=== PATIENT | female | born 1970 | race African-American/Black ===

== ENCOUNTER 2022-02-08 07:38 | Emergency (ER) | payer OTHER, SELFPAY ==
[2022-02-08 07:32] VITALS: BP 117/67; PULSE 53; RESP 12; TEMP 37.1; O2SAT 100
[2022-02-08 07:41] VITALS: PULSE 53
--- NOTE | 2022-02-08 07:41 | ECG_ITS ---
Measurements Intervals [employer] Rate: 52 P: 63 IL: 204 QRS: -5 QRSD: 81 T: 13 QT: 432 QTc: 402 Interpretive Statements SINUS BRADYCARDIA NO PREVIOUS ECG AVAILABLE FOR COMPARISON Electronically Signed On 02-08-2022 8:49:13 CDT by Toi Cody M.D.
--- NOTE | 2022-02-08 08:05 | ED.SYNCOPE ---
HPI - Syncope General Chief Complaint: Syncope Stated Complaint: syncope Source: patient Mode of arrival: ambulatory Limitations: no limitations History of Present Illness HPI narrative: 51-year-old female presents emergency room secondary to a syncopal episode. She was at home getting ready for work when she all of a sudden felt her heart racing and then felt weak and collapsed. There were people there witnessed this and actually caught her so she did not fall and hurt her self. The individual is there is here in the emergency room. She states she was out for 1 to 2 minutes then gradually came back to normal. Patient's had 2-3 episodes like this before the last episode was several months ago when she was at work and she went to [facility] had a work-up and evaluation and discharged with no abnormalities noted. Further discussion with the patient she does feel like her heart races from time to time. Most the time is very short and self-limited and she is asymptomatic. However there are times like today wearing braces to the point she began to feel it. She denies any chest pain or shortness of breath. There is no seizure-like activity it was noted. She has never had her thyroid checked. She states she does feel like she is losing weight without even trying. Review of Systems Review of Systems: CONSTITUTIONAL: Denies fever, chills, or sweats. EYES: Denies visual changes, redness, or discharge. ENT: Denies rhinorrhea, congestion, sore throat, or otalgia. CARDIOVASCULAR: Denies chest pain. Patient does feel her heart racing from time to time RESPIRATORY: Denies cough or dyspnea. GASTROINTESTINAL: Denies abdominal pain, nausea, vomiting, or diarrhea. GENITOURINARY: Denies dysuria or hematuria. SKIN: Denies rash or itching. MUSCULOSKELETAL: Denies back pain, joint pain, or myalgia. NEUROLOGIC: Denies headache, numbness, or weakness. PSYCHIATRIC: Denies anxiety or depression. PMFSH Past Medical History Medical History Anxiety Neuropathy Social History Social History Smoking status: Never smoker Exam Narrative: APPEARANCE: Well appearing, no pain or distress, well-nourished. Head normocephalic and atraumatic. EYES: PERRLA/EOMI, conjunctivae very clear. NOSE: Normal with no drainage EARS:TMS clear Minor Moore, with good light reflex. THROAT: Pharynx clear, no exudate. NECK: Supple. No adenopathy, no masses. RESPIRATORY: Airway patent, respirations nonlabored. Clear to auscultation bilaterally, no rales, rhonchi, wheezing. CARDIOVASCULAR: Regular rate and rhythm without murmurs, rubs, or gallops. ABDOMINAL: Soft, nontender, nondistended, no hepatosplenomegaly Musculoskeletal: Moves all extremities. Strength/ROM intact, No edema, No calf tenderness. NEURO: Alert. Cranial nerves II through XII intact. Normal gait. Good coordination. Nonfocal examination. SKIN:: Warm, dry. Normal Color PSYCHIATRIC: Normal affect/mood, normal interaction Course Vital Signs Vital signs: Vital Signs Temperature 98.7 F 02/08/22 07:32 Pulse Rate 53 L 02/08/22 07:32 Respiratory Rate 12 02/08/22 07:32 Blood Pressure 117/67 02/08/22 07:32 Pulse Oximetry 100 02/08/22 07:32 Temperature 98.7 F 02/08/22 07:32 Pulse Rate 53 L 02/08/22 07:41 Respiratory Rate 12 02/08/22 07:32 Blood Pressure 117/67 02/08/22 07:32 Pulse Oximetry 100 02/08/22 07:32 MDM - Syncope MDM Narrative Medical decision making narrative: Based upon this patient's history I am highly suspicious that she is having tacky arrhythmias. She does have feelings of time at time her heart is racing with her. She feels dizzy and lightheaded at times. She is at several syncopal episodes with no etiology determined at this point. Work-up and evaluation emergency room was unremarkable. Advised the patient to follow-up with her physician and request t
[2022-02-08 08:06] LABS: Basophils Percent Auto 0.9 % (0.2-1.2); Eosinophils Absolute Auto 0.1 K/mm3 (0-0.3); Hematocrit 33.8 % (37.0-47.0); Hemoglobin 11.6 g/dL (12.0-15.0); Immature Granulocyte Absolute 0.01 K/mm3 (0.00-0.031); Immature Granulocyte Percent A 0.2 % (0-0.5); Lymphocytes Absolute Auto 2.27 K/mm3 (0.9-3.2); Lymphocytes Percent Auto 51.7 % (18.3-44.2); Mean Corpuscular HGB Conc 34.3 g/dl (32-36); Mean Corpuscular Hemoglobin 24.1 pg (26-34); Mean Corpuscular Volume 70.1 fl (80-100); Mean Platelet Volume 10.1 fl (7.4-10.4); Monocytes Absolute Auto 0.4 K/mm3 (0.1-0.6); Monocytes Percent Auto 8.4 % (2.6-8.5); Neutrophils Absolute Auto 1.6 K/mm3 (1.3-6.7); Neutrophils Percent Auto 35.8 % (45.5-73.1); Platelet Count Result 215 k/mm3 (150-375); Red Blood Count 4.82 M/mm3 (4.2-5.4); Red Cell Distribution Width 15.5 % (11.5-14.5); White Blood Count 4.4 K/mm3 (4.5-10.0)
[2022-02-08 08:07] LABS: Alanine Aminotransferase 13 U/L (4-35); Albumin Level 3.8 g/dL (3.5-5.1); Alkaline Phosphatase 65 U/L (38-126); Anion Gap 5 mmol/L (8-16); Aspartate Amino Transferase 22 U/L (14-36); Bilirubin,Total 0.4 mg/dL (0.2-1.3); Blood Urea Nitrogen 13 mg/dL (7-17); Calcium 8.4 mg/dL (8.4-10.2); Carbon Dioxide 24 mmol/L (22-30); Chloride 110 mmol/L (98-107); Estimated Glomerular Filt Rate > 60; Glucose 66 mg/dL (65-110); Potassium 3.4 mmol/L (3.4-5.0); Sodium 139 mmol/L (137-145)
[2022-02-08 08:46] VITALS: BP 116/63; PULSE 53; RESP 15; O2SAT 99
[2022-02-08 08:50] LABS: Thyroid Stimulating Hormone 0.583 uIU/mL (0.465-4.680)
== END 2022-02-08 08:48 | disposition home or self-care (01) ==
PROVIDERS: Emergency Provider Emergency Medicine; PCP Internal Medicine
DX: R00.0 Tachycardia, unspecified (principal); R55 Syncope and collapse; F41.9 Anxiety disorder, unspecified; G62.9 Polyneuropathy, unspecified
CPT/HCPCS: 36415; 80053; 84443; 85025; 93005; 99284